=== PATIENT | female | born 1970 | race African-American/Black ===

== ENCOUNTER 2016-11-01 16:20 | Emergency (ER) | payer OTHER ==
[2016-11-01 16:33] VITALS: BP 126/74; PULSE 87; TEMP 98.3; BMI 29.9
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
[2016-11-01] MEDS ORDERED: KETOROLAC TROMETHAMINE 30 MG/1 ML VIAL IM ONE (16:48)
[2016-11-01] MEDS ORDERED: KETOROLAC TROMETHAMINE 30 MG/1 ML VIAL ONE (16:51)
== END 2016-11-01 17:50 | disposition home or self-care (01) ==
LOC: FER 16:20
PROC: 3E0233Z Introduction of Anti-inflammatory into Muscle, Percutaneous Approach (ICD-10-PCS; principal; 2016-11-01)
DX: S33.5XXA Sprain of ligaments of lumbar spine, initial encounter (principal); X58.XXXA Exposure to other specified factors, initial encounter; Y93.9 Activity, unspecified; Y92.9 Unspecified place or not applicable
CPT/HCPCS: 99283-25

== ENCOUNTER 2018-05-25 14:57 | Emergency (ER) | payer OTHER ==
--- NOTE | 2018-05-25 15:11 | PDOC ---
History of Present Illness <Patsy Waddell - Last Filed: 05/25/18 15:49> - General History Source: Patient Exam Limitations: No Limitations - History of Present Illness Initial Comments: 05/25/18 15:42 The patient is a 47 year old female with no significant PMH who presents to the emergency department with a rash under her right buttock for the past two days. Patient has not noticed if the rash has become larger. Patient states she went to the urgent care and was told it was cellulitis. Patient was prescribed bactrim and has taken two doses. Patient notes the area is painful and is here today for a second opinion. Patient denies any fevers at home. Allergies: NKA Past surgical history: Urethral diverticulum corrected. Social history: No reported alcohol, drug or cigarette use. PCP: Dr. 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) Diabetes: No Dialysis: (URETHRAL DIVERTICULUM) GI Disorders: Yes Disorders: Yes HTN: No - Reproductive History (#): 1 Para: 1 - Immunization History Td Vaccination: No - Suicide/Smoking/Psychosocial Hx Smoking Status: No Smoking History: Never smoked Have you smoked in the past 12 months: No Number of Cigarettes Smoked Daily: 0 Hx Alcohol Use: No Drug/Substance Use Hx: No Substance Use Type: None <Patsy Waddell - Last Filed: 05/25/18 15:49> <Sue Hopkins - Last Filed: 05/25/18 16:11> - Past Medical History Allergies/Adverse Reactions: Allergies Allergy/AdvReac Type Severity Reaction Status Date / Time Penicillins Allergy Intermediate Swelling Verified 05/25/18 14:59 Home Medications: Ambulatory Orders Oxycodone HCl/Acetaminophen [Percocet 5-325 mg Tablet] 1 tab PO Q6H PRN #4 tablet MDD 4 05/25/18 Sulfamethoxazole/Trimethoprim [Bactrim DS -] 1 tab PO BID 05/25/18 Review of Systems - Review of Systems Able to Perform ROS?: Yes Comments:: 05/25/18 15:42 ADULT ROS GENERAL/CONSTITUTIONAL: No fever or chills. No weakness. HEAD, EYES, EARS, NOSE AND THROAT: No change in vision. No ear pain or discharge. No sore throat. CARDIOVASCULAR: No chest pain or shortness of breath. RESPIRATORY: No cough, wheezing, or hemoptysis. GASTROINTESTINAL: No nausea, vomiting, diarrhea or constipation. GENITOURINARY: No dysuria, frequency, or change in urination. MUSCULOSKELETAL: No joint or muscle swelling or pain. No neck or back pain. SKIN: (+) Rash under the right buttock. NEUROLOGIC: No headache, vertigo, loss of consciousness, or change in strength/ sensation. ENDOCRINE: No increased thirst. No abnormal weight change. HEMATOLOGIC/LYMPHATIC: No anemia, easy bleeding, or history of blood clots. ALLERGIC/IMMUNOLOGIC: No hives or skin allergy. <Sue Hopkins - Last Filed: 05/25/18 16:11> *Physical Exam - Vital Signs Last Vital Signs Temp Pulse Resp BP Pulse Ox 99 F 97 H 18 118/79 99 05/25/18 14:58 05/25/18 14:58 05/25/18 14:58 05/25/18 14:58 05/25/18 14:58 - Physical Exam Comments: 05/25/18 15:42 ADULT EXAM GENERAL: Awake, alert, and fully oriented, in no acute distress LUNGS: Breath sounds equal, clear to auscultation bilaterally. No wheezes, and no crackles HEART: Regular rate and rhythm, normal S1 and S2, no murmurs, rubs or gallops EXTREMITIES: Normal range of motion, no edema. No clubbing or cyanosis. No cords, erythema, or tenderness NEUROLOGICAL: Cranial nerves II through XII grossly intact. Normal speech, normal gait SKIN: Warm, Dry, normal turgor. (+) 4cm area of redness and tenderness with no fluctuance or discharge under her right buttock. No surrounding erythema. <Sue Hopkins - Last Filed: 05/25/18 16:11> *DC/Admit/Observation/Transfer - Discharge Dispostion Decision to Admit order: No <Patsy Waddell - Last Filed: 05/25/18 15:49> - Attestations Scribe Attestion: 05/25/18 15:43 Documentation prepared by Sue Hopkins, acting as medical assistant cardiology for Patsy Waddell MD. <Sue Hopkins - Last Filed: 05/25/18 16:11> Diagnosis at time of Disposition: Cellulitis Qualifiers: Site of cellulitis: buttock Qualified Code(s): L03.317 - Cellulitis of buttock - Discharge Dispostion Disposition: HOME Condition at time of disposition: Good - Prescriptions Prescriptions: Oxycodone HCl/Acetaminophen [Percocet 5-325 mg Tablet] 1 tab PO Q6H PRN #4 tablet MDD 4 PRN Reason: Severe Pain - Referrals Referrals: Jazz Sadler MD [Primary Care Provider] - - Patient Instructions Printed Discharge Instructions: DI for Cellulitis -- Adult Additional Instructions: return to the Ed for spreading redness and pain, fever, nausea and vomiting, other new or worsening symptoms. also return if your symptoms haven not improved after three days of antibiotics. make sure that you take the antibiotics until they are all gone. Use warm compresses and over the counter motrin to help with the pain. You can take motrin along with the percoset, but do not take tylenol while taking percoset. - Post Discharge Activity
[2018-05-25 15:14] VITALS: BP 118/79; PULSE 97; TEMP 99; BMI 30.8
[2018-05-25] MEDS ORDERED: IBUPROFEN 400 MG TABLET (FP) PO ONE ×2 (15:40→15:42)
== END 2018-05-25 15:58 | disposition home or self-care (01) ==
LOC: FER 14:57
DX: L03.317 Cellulitis of buttock (principal)
CPT/HCPCS: 99281-25

== ENCOUNTER 2020-09-02 06:40 | Emergency (ER) | payer OTHER ==
[2020-09-02 06:51] VITALS: BP 130/73; PULSE 110; TEMP 98.2; BMI 30.3
[2020-09-02] MEDS ORDERED: SODIUM CHLORIDE 1,000 ML IV STA (07:01)
[2020-09-02] MEDS ORDERED: ONDANSETRON 4 MG/2 ML VIAL IVPUSH ONE (07:02)
[2020-09-02] MEDS ORDERED: ONDANSETRON 4 MG/2 ML VIAL ONE (07:07)
[2020-09-02] MEDS ORDERED: ACETAMINOPHEN 1000 MG/100 ML VIAL (NON FORMULARY) IVPB ONE (07:38)
[2020-09-02] MEDS ORDERED: ACETAMINOPHEN INJECTION 100 ML IVPB ONE (07:45)
[2020-09-02 08:12] LABS: HCG,QUALITATIVE URINE Negative
[2020-09-02 08:54] LABS: EPITHELIAL CELLS FEW /hpf
[2020-09-02 08:57] LABS: BASO % 0.4 % (0-2.0); EOS % 0.1 % (0-4.5); HEMATOCRIT 31.2 % (32.4-45.2); LYMPH % 5.8 % (8-40); MCH 26.2 pg (25.7-33.7); MEAN CELL VOLUME 81.7 fl (80-96); MEAN PLT VOLUME 9.2 fl (7.5-11.1); MONO % 5.4 % (3.8-10.2); NEUT % 88.3 % (42.8-82.8); PLATELET COUNT 266 K/MM3 (134-434); RBC 3.82 M/mm3 (3.60-5.2); RDW 16.4 % (11.6-15.6); WHITE BLOOD COUNT 11.5 K/mm3 (4.0-10.8)
[2020-09-02 09:05] LABS: BILIRUBIN,TOTAL 0.4 mg/dl (0.2-1); CALCIUM 9.1 mg/dl (8.5-10); CREATININE 0.8 mg/dl (0.55-1.3); POTASSIUM 4.2 mmol/L (3.5-5.1); TOT PROT 7.4 g/dl (6.4-8.2)
[2020-09-02] MEDS ORDERED: KETOROLAC TROMETHAMINE 15 MG/ML VIAL IVPUSH ONE (11:03)
[2020-09-02] MEDS ORDERED: KETOROLAC TROMETHAMINE 15 MG/ML VIAL ONE (11:16)
== END 2020-09-02 11:38 | disposition home or self-care (01) ==
LOC: FER 06:40
PROC: 3E0333Z Introduction of Anti-inflammatory into Peripheral Vein, Percutaneous Approach (ICD-10-PCS; principal; 2020-09-02)
PROC: 3E0333Z Introduction of Anti-inflammatory into Peripheral Vein, Percutaneous Approach (ICD-10-PCS; 2020-09-02)
PROC: 3E033GC Introduction of Other Therapeutic Substance into Peripheral Vein, Percutaneous Approach (ICD-10-PCS; 2020-09-02)
PROC: 3E0337Z Introduction of Electrolytic and Water Balance Substance into Peripheral Vein, Percutaneous Approach (ICD-10-PCS; 2020-09-02)
DX: D64.9 Anemia, unspecified (principal); R10.9 Unspecified abdominal pain; D25.9 Leiomyoma of uterus, unspecified
CPT/HCPCS: 36415; 74177-TC; 80053; 81003; 81015; 84703; 85025; 87086; 93005; 99285-25; J0131

== ENCOUNTER 2022-06-05 01:49 | Emergency (ER) | payer OTHER ==
[2022-06-05 01:54] VITALS: BP 138/87; PULSE 87; RESP 18; TEMP 98.4; BMI 30.6
[2022-06-05] MEDS ORDERED: GABAPENTIN 100 MG CAPSULE PO ONE (02:17)
[2022-06-05] MEDS ORDERED: LIDOCAINE 5% TOPICAL PATCH TP ONE (02:18)
[2022-06-05] MEDS ORDERED: GABAPENTIN 300 MG CAPSULE ONE (02:30)
[2022-06-05] MEDS ORDERED: LIDOCAINE PATCH REMOVAL MC SCH (22:00)
== END 2022-06-05 03:12 | disposition home or self-care (01) ==
LOC: FER 01:49
DX: M25.551 Pain in right hip (principal); G56.91 Unspecified mononeuropathy of right upper limb; G56.01 Carpal tunnel syndrome, right upper limb
CPT/HCPCS: 73502-TC-RT-FY; 81025; 99284-25

== ENCOUNTER 2023-03-15 13:24 | Emergency (ER) | payer OTHER ==
[2023-03-15 13:45] VITALS: BP 126/77; PULSE 89; RESP 20; TEMP 98.4; BMI 31.9
[2023-03-15] MEDS ORDERED: IBUPROFEN 400 MG TABLET (FP) PO ONE (14:04)
[2023-03-15] MEDS ORDERED: ACETAMINOPHEN 325 MG TABLET (FP) PO ONE (14:05)
[2023-03-15] MEDS ORDERED: LIDOCAINE 5% TOPICAL PATCH TP ONE (14:05)
[2023-03-15] MEDS ORDERED: LIDOCAINE 5% TOPICAL PATCH ONE (14:15)
[2023-03-15] MEDS ORDERED: IBUPROFEN 600 MG TABLET (FP) PO ONE (14:15)
[2023-03-15] MEDS ORDERED: ACETAMINOPHEN 325 MG TABLET (FP) ONE ×2 (14:15)
[2023-03-15] MEDS ORDERED: LIDOCAINE PATCH REMOVAL MC SCH (22:00)
== END 2023-03-15 15:50 | disposition home or self-care (01) ==
LOC: FER 13:24
DX: M25.562 Pain in left knee (principal); W01.0XXA Fall on same level from slipping, tripping and stumbling without subsequent striking against object, initial encounter; Y99.0 Civilian activity done for income or pay
CPT/HCPCS: 73560-TC-LT-FY; 99283-25

== ENCOUNTER 2023-08-24 14:05 | Emergency (ER) | payer OTHER ==
[2023-08-24 14:41] VITALS: BP 126/78; PULSE 77; RESP 18; TEMP 97.8; BMI 32.3
[2023-08-24] MEDS ORDERED: ACETAMINOPHEN 325 MG TABLET (FP) PO ONE (14:51)
[2023-08-24] MEDS ORDERED: IBUPROFEN 400 MG TABLET (FP) PO ONE ×2 (14:51→14:53)
[2023-08-24] MEDS ORDERED: ACETAMINOPHEN 325 MG TABLET (FP) ONE (14:53)
== END 2023-08-24 16:10 | disposition home or self-care (01) ==
LOC: FER 14:05
DX: M54.50 Low back pain, unspecified (principal); W01.0XXA Fall on same level from slipping, tripping and stumbling without subsequent striking against object, initial encounter; Y93.01 Activity, walking, marching and hiking
CPT/HCPCS: 72100-TC-FY; 99283-25